=== PATIENT | female | born 1955 | race Caucasian/White ===

== ENCOUNTER 2018-04-04 16:42 | Emergency (ER) | payer BC, OTHER ==
[2018-04-04 17:06] VITALS: BP 124/67
--- NOTE | 2018-04-04 17:09 | UC ---
General HPI - HPI Summary HPI Summary: 62 yo female presents with dizziness and "not feeling right". She tells me that around 1430 this afternoon she was doing laundry and had a sudden onset of dizziness and loss of balance. She went inside and laid down for around 30 minutes and then went into bed to take a nap. She woke up and still felt a little dizzy and "not right". She called her PCP secondary market manager doctor who recommended she be seen at . Currently pt feels nauseous, dizzy, and "just not right". Denies SOB, chest pain, abdominal pain, vomiting, headache, vision changes, or weakness. - History of Current Complaint Chief Complaint: UCDizziness Stated Complaint: DIZZY Time Seen by Provider: 04/04/18 16:54 Hx Obtained From: Patient Current Severity: None Pain Intensity: 0 - Allergy/Home Medications Allergies/Adverse Reactions: Allergies Allergy/AdvReac Type Severity Reaction Status Date / Time erythromycin base Allergy Rash Verified 04/04/18 18:32 Home Medications: Home Medications NK [No Home Medications Reported] 04/04/18 [History Confirmed 04/04/18] PMH/Surg Hx/FS Hx/Imm Hx - Additional Past Medical History Additional PMH: None Previously Healthy: Yes - Surgical History Surgical History: None - Family History Known Family History: Positive: None - Social History Occupation: Employed Full-time Lives: With Family Alcohol Use: None Substance Use Type: None Smoking Status (MU): Never Smoked Tobacco Review of Systems Constitutional: Negative Skin: Negative Eyes: Negative ENT: Negative Respiratory: Negative Cardiovascular: Negative Gastrointestinal: Nausea Genitourinary: Negative Neurovascular: Negative Musculoskeletal: Negative Neurological: Other - Dizziness Psychological: Negative All Other Systems Reviewed And Are Negative: Yes Physical Exam - Summary Physical Exam Summary: GENERAL: NAD. WDWN. No pain distress. SKIN: No rashes, sores, or open wounds. HEENT: Head: AT/NC Eyes: PERRLA. EOM intact. Conjunctiva clear without inflammation or discharge. No nystagmus appreciated. NECK: Supple. Nontender. No lymphadenopathy. CHEST: CTAB. No r/r/w. No accessory muscle use. Breathing comfortably and in no distress. CV: RRR. Without m/r/g. Pulses intact. Brisk cap refill. ABDOMEN: Soft. NTTP. No distention or guarding., No organomegaly. No CVA tenderness. Bowel sounds present MSK: FROM in B/L UEs and LEs with symmetric strength. NEURO: A&Ox3. 3 word recall, remote, recent memory, ability to follow 2-step directions, and attention intact. CN II XII grossly intact. [id number] are intact. Gait with normal base. Romberg: maintains balance, no pronator drift. Normal speech. No facial drooping. PSYCH: Age appropriate behavior. Triage Information Reviewed: Yes Vital Signs: Initial Vital Signs Temp 98 F 04/04/18 16:57 Pulse 59 04/04/18 16:57 Resp 16 04/04/18 16:57 BP 124/67 04/04/18 16:57 Pulse Ox 99 04/04/18 16:57 Laboratory Tests 04/04/18 17:09 POC Glucose (mg/dL) 138 H Vital Signs Reviewed: Yes Diagnostics - EKG Cardiac Rate: Bradycardia - <60 Cardiac Rhythm: Sinus: Normal, LBBB: New - no prior EKG available Ectopy: None Course/Dx - Course Course Of Treatment: EKG with sinus asa 56bpm with LBBB as read by Dr. Thao. There is no prior EKG for comparison. POC glucose was 138. Given pt's onset of dizziness and "just not feeling right" and new finding of LBBB - I have advised her to be seen in the ED for a more appropriate cardiac work up. She was agreeable to this. She refused ambulance transfer. - Differential Dx - Multi-Symptom Provider Diagnoses: New onset LBBB. Dizziness Discharge - Sign-Out/Discharge Documenting (check all that apply): Patient Departure - Discharge Plan Condition: Stable Disposition: HOME-RECOMMEND TO ED Referrals: Rk Núñez MD [Primary Care Provider] - Additional Instructions: Please go to the ER for further evaluation of your dizziness - Billing Disposition and Condition Condition: STABLE Disposition: Home-Recommend to ED NIH Scale - NIH Scale Level of Consciousness: Alert/Keenly Responsive Ask Patient the Month and His/Her Age: Both Correct Ask Pt to Open/Close Eyes and Cheese Blender/Release Non-Paretic Hand: Both Correctly Best Gaze (Only Horizontal Eye Movement): Normal Visual Field Testing: No Visual Loss Facial Paresis-Pt to Smile & Close Eyes or Grimace Symmetry: Normal/Symmetrical Motor Function - Right Arm: No Drift-Holds 10 Seconds Motor Function - Left Arm: No Drift-Holds 10 Seconds Motor Function - Right Leg: No Drift-Holds 10 Seconds Motor Function - Left Leg: No Drift-Holds 10 Seconds Limb Ataxia-Must be out of Proportion to Weakness Present: Absent Sensory (Use Pinprick to Test Arms/Legs/Trunk/Face): Normal Best Language (Describe Picture, Name Items): No Aphasia Dysarthria (Read Several Words): Normal Extinction and Inattention: No Abnormality Total Score: 0
== END 2018-04-04 17:30 | disposition home health service (06) ==
LOC: UCEAST 16:42
DX: I44.7 Left bundle-branch block, unspecified (principal); R42 Dizziness and giddiness; Z88.1 Allergy status to other antibiotic agents
CPT/HCPCS: 93005; 99212; G0463

== ENCOUNTER 2018-04-04 17:49 | Emergency (ER) | payer BC, OTHER ==
[2018-04-04 18:22] LABS: ABS Basophils 0 10^3/ul (0-0.2); ABS Eosinophils 0.1 10^3/ul (0-0.6); ABS Lymphocytes 1.2 10^3/ul (1.0-4.8); ABS Monocytes 0.4 10^3/ul (0-0.8); ABS Neutrophils 3.2 10^3/ul (1.5-7.7); ABS Nucleated RBC 0 10^3/ul; Eosinophil % 1.5 % (0-6); Hematocrit 35 % (35-47); Hemoglobin 11.8 g/dl (12.0-16.0); Lymphocyte % 24.1 % (25-47); Mean Corpuscular HGB Conc 34 g/dl (31-36); Mean Corpuscular Hemoglobin 31 pg (27-31); Mean Corpuscular Volume 91 fL (80-97); Mean Platelet Volume 7.4 um3 (7.4-10.4); Nucleated Red Blood Cells % 0.1; Platelet Count 194 10^3/ul (150-450); Red Blood Count 3.84 10^6/ul (4.00-5.40); Red Cell Distribution Width 14 % (10.5-15)
--- NOTE | 2018-04-04 18:30 | RAD ---
INDICATION: Dizziness COMPARISON: None TECHNIQUE: PA and lateral dual-energy views were obtained. FINDINGS: Bones/Soft Tissues: There are no acute bony findings. There is osteopenia with mild kyphosis. Cardiomediastinal: The cardiomediastinal silhouette is normal. Lungs: There are no infiltrates. There is hyperinflation. Pleura: There are no pleural effusions. Other: None IMPRESSION: HYPERINFLATION. LUNGS CLEAR.
[2018-04-04 18:42] LABS: EGFR Non-African American 78.8 (>60)
--- NOTE | 2018-04-04 19:43 | ED ---
Dizziness - HPI Summary HPI Summary: This is angy Quach documenting for Dr. Yovani Ricardo MD. Pt is a 62 y/o F who presents to ED c/o dizziness. She describes it as an unusual spell of dizziness that hit around 3 pm while she was outside hanging up laundry. She felt off balance and like she was going to fall down. Pt tried lying down, but the ceiling seemed like it was moving and other things were moving around her. She cant find the words to describe the dizziness, and says that it isnt like the room is spinning but instead that she simply doesnt feel right. She wouldnt feel comfortable driving because of her dizziness. Rated her pain intensity at triage as 0/10. Visited [facility] earlier today and they recommended she come to ED. Had sinus bradycardia at [facility]. Denies ear infection , throat infection, or fever. Denies alcohol use, smoking, or being on medications. PMHx denies diabetes and hypertension. - History Of Current Complaint Chief Complaint: EDDizziness Stated Complaint: DIZZINESS-SENT F/CC Time Seen by Provider: 04/04/18 19:06 Hx Obtained From: Patient Onset/Duration: Still Present, Suddenly Timing: Hours Severity Currently: None - 0/10 Character: Room Spinning - Negative, Dizzy, Unable To Describe - "doesn't feel right" Alleviating Factor(s): Nothing Associated Signs And Symptoms: Positive: Other: - NEGATIVE: ear or throat infection. Negative: Fever - Allergies/Home Medications Allergies/Adverse Reactions: Allergies Allergy/AdvReac Type Severity Reaction Status Date / Time erythromycin base Allergy Rash Verified 04/04/18 18:32 PMH/Surg Hx/FS Hx/Imm Hx Endocrine/Hematology History: Denies: Hx Diabetes Cardiovascular History: Denies: Hx Hypertension Infectious Disease History: No Infectious Disease History: Denies: Traveled Outside the [place] in Last 30 Days - Family History Known Family History: Positive: Other - Anemia, cancer - Social History Alcohol Use: None Substance Use Type: Reports: None Smoking Status (MU): Never Smoked Tobacco Review of Systems Positive: Other - Dizziness. Negative: Fever ENT: Other - Negative for ear or throat infection All Other Systems Reviewed And Are Negative: Yes Physical Exam - Summary Physical Exam Summary: Appearance: Well appearing, no pain distress Skin: warm, dry, reflects adequate perfusion Head/face: normal Eyes: EOMI, ROSA ENT: normal Neck: supple, non-tender Respiratory: CTA, breath sounds present Cardiovascular: RRR, pulses symmetrical Abdomen: non-tender, soft Bowel: present Musculoskeletal: normal, strength/ROM intact Neuro: normal, sensory motor intact, A&Ox3 Triage Information Reviewed: Yes Vital Signs On Initial Exam: Initial Vitals Temp Pulse Resp BP Pulse Ox 98.1 F 56 16 133/75 99 04/04/18 17:53 04/04/18 17:53 04/04/18 17:53 04/04/18 17:53 04/04/18 17:53 Vital Signs Reviewed: Yes Diagnostics - Vital Signs Vital Signs Temp Pulse Resp BP Pulse Ox 04/04/18 19:01 63 18 146/80 99 04/04/18 19:00 64 21 99 04/04/18 18:36 62 17 137/79 99 04/04/18 18:33 49 18 125/71 99 04/04/18 18:31 51 19 136/71 100 04/04/18 18:29 53 99 04/04/18 17:53 98.1 F 56 16 133/75 99 - Laboratory Lab Results: Lab Results 04/04/18 04/04/18 04/04/18 Range/Units 18:11 18:11 18:11 WBC 5.0 (3.5-10.8) 10^3/ul RBC 3.84 L (4.00-5.40) 10^6/ul Hgb 11.8 L (12.0-16.0) g/dl Hct 35 (35-47) % MCV 91 (80-97) fL MCH 31 (27-31) pg MCHC 34 (31-36) g/dl RDW 14 (10.5-15) % Plt Count 194 (150-450) 10^3/ul MPV 7.4 (7.4-10.4) um3 Neut % (Auto) 64.9 (38-83) % Lymph % (Auto) 24.1 L (25-47) % [place] % (Auto) 8.7 H (0-7) % Eos % (Auto) 1.5 (0-6) % Baso % (Auto) 0.8 (0-2) % Absolute Neuts (auto) 3.2 (1.5-7.7) 10^3/ul Absolute Lymphs (auto) 1.2 (1.0-4.8) 10^3/ul Absolute Monos (auto) 0.4 (0-0.8) 10^3/ul Absolute Eos (auto) 0.1 (0-0.6) 10^3/ul Absolute Basos (auto) 0 (0-0.2) 10^3/ul Absolute Nucleated RBC 0 10^3/ul Nucleated RBC % 0.1 Sodium 140 (135-145) mmol/L Potassium 3.7 (3.5-5.0) mmol/L Chloride 105 (101-111) mmol/L Carbon Dioxide 29 (22-32) mmol/L Anion Gap 6 (2-11) mmol/L BUN 13 (6-24) mg/dL Creatinine 0.75 (0.51-0.95) mg/dL Est GFR ( Amer) 95.4 (>60) Est GFR (Non-Af Amer) 78.8 (>60) BUN/Creatinine Ratio 17.3 (8-20) Glucose 103 H (70-100) mg/dL Lactic Acid 1.0 (0.5-2.0) mmol/L Calcium 9.2 (8.6-10.3) mg/dL Total Bilirubin 0.50 (0.2-1.0) mg/dL AST 16 (13-39) U/L ALT 6 L (7-52) U/L Alkaline Phosphatase 65 (34-104) U/L Troponin I 0.00 (<0.04) ng/mL Total Protein 6.9 (6.4-8.9) g/dL Albumin 4.2 (3.2-5.2) g/dL Globulin 2.7 (2-4) g/dL Albumin/Globulin Ratio 1.6 (1-3) Result Diagrams: 04/04/18 18:11 04/04/18 18:11 Lab Statement: Any lab studies that have been ordered have been reviewed, and results considered in the medical decision making process. - Radiology CXR Radiology Interpretation Completed By: Radiologist - 18:03. Impression: Hyperinflation. Lungs Clear. ED Physician reviewed this report. - CT Brain CT CT Interpretation Completed By: ED Physician - Normal CT. Negative. - EKG 16:46 Cardiac Rate: Bradycardia - 53 bpm EKG Rhythm: Sinus Bradycardia EKG Interpretation: LBBB 16:50 Cardiac Rate: Bradycardia - 56 bpm EKG Rhythm: Sinus Bradycardia EKG Interpretation: LBBB Re-Evaluation - Re-Evaluation First Eval Re-Evaluation Time: 22:11 Change: Improved - Pt feels better and agreeable with discharge plans. Dizzy Course/Dx - Course Course Of Treatment: Pt is a 62 y/o F who presents to ED c/o dizziness and states that she simply doesnt feel right. Visited [facility] earlier today and they recommended she come to ED. Denies ear infection, throat infection, or fever. Physical exam was normal. CXR showed hyperinflation and that lungs were clear. Brain CT was negative. First EKG at 16:46 showed sinus bradycardia at 53 bpm and LBBB. Second EKG at 16:50 showed sinus bradycardia at 56 bpm and LBBB. Spoke with neurologist Dr. Freedman who said the pt was fine to go home. Pt was diagnosed with dizziness and is agreeable with discharge plans. - Diagnoses Differential Diagnosis/HQI/PQRI: Anxiety, Benign Paroxysmal Positional Vertigo, Metabolic Abnormality, Transient Ischemic Attack, Vasovagal Reaction Provider Diagnoses: Dizziness - Provider Notifications Discussed Care Of Patient With: Melvin Freedman Time Discussed With Above Provider: 21:00 Instructed by Provider To: Other - Discharge pt home Discharge - Sign-Out/Discharge Documenting (check all that apply): Patient Departure - Discharge - Discharge Plan Condition: Stable Disposition: HOME Patient Education Materials: Dizziness (ED) Referrals: Rk Núñez MD [Primary Care Provider] - 3 Days Additional Instructions: RETURN TO ED FOR ANY NEW OR WORSENING SYMPTOMS. - Billing Disposition and Condition Condition: STABLE Disposition: Home
[2018-04-04 23:13] VITALS: BP 142/78
--- NOTE | 2018-04-05 07:21 | RAD ---
INDICATION: Dizziness. COMPARISON: There are no prior studies available for comparison. TECHNIQUE: Contiguous axial sections of the brain were obtained from the skull base to the vertex without contrast. FINDINGS: The ventricles, cisterns and sulci are within normal limits. No significant focal abnormality or mass effect is seen. There is no evidence for hemorrhage. No significant focal osseous abnormality is seen. The visualized portion of the paranasal sinuses and mastoid air cells appear clear. IMPRESSION: NO EVIDENCE FOR ACUTE INTRACRANIAL ABNORMALITY. R0
== END 2018-04-04 23:14 | disposition home or self-care (01) ==
LOC: ED 17:49
DX: R42 Dizziness and giddiness (principal); Z88.1 Allergy status to other antibiotic agents
CPT/HCPCS: 36415; 70450; 71046; 80053; 83605; 84484; 85025; 93005; 99284